=== PATIENT | male | born 1965 | race Caucasian/White ===

== ENCOUNTER 2016-08-17 11:20 | Inpatient (IN) | payer BC, OTHER ==
[~2016-08-17] VITALS: Ht 182.9 cm; Wt 127.6 kg
[2016-08-17] VITALS (11 sets, daily range): BP systolic 130–220; BP diastolic 77–119; PULSE 60–76; RESP 18–22; TEMP 98–98.5; O2SAT 65–99
[~2016-08-17 11:20] MED LIST: AMOX875T20 PO; ASPI325T PO; LISI-363 PO; LORTA5 PO; METF1000 PO; NIAC500 PO; ROSU40 PO; SYNT25TA PO
[2016-08-17] MEDS ORDERED: SODIUM CHLORIDE 0.9% FLUSH 10 ML FLUSH IVF PRN (11:45)
[2016-08-17] MEDS: NITROGLYCERIN 0.4 MG SL 25 TABS/BTL SL SCH ×3 (11:49→12:10)
[2016-08-17] MEDS: METOPROLOL TARTRATE 5 MG/5 ML VIAL IVS SCH ×2 (11:50→11:55)
--- NOTE | 2016-08-17 12:09 | RADRPT ---
EXAM DATE/TIME: 08/17/2016 11:48 [place] COMPARISON: No previous studies available for comparison. INDICATIONS : Chest pain. MEDICAL HISTORY : Diabetes mellitus type II. Hypertension SURGICAL HISTORY : CABG. ENCOUNTER: Initial ACUITY: 1 day PAIN SCORE: 5/10 LOCATION: Bilateral chest FINDINGS: A single view of the chest demonstrates the lungs to be symmetrically aerated without evidence of mas s, infiltrate or effusion. The cardiomediastinal contours are unremarkable. Osseous structures are intact. CONCLUSION: No acute disease. Luis Eduardo Greco MD on August 17, 2016 at 12:07 Board Certified Radiologist. This report was verified electronically.
[2016-08-17 12:15] LABS: AUTOMATED NEUTROPHIL # 9.2 TH/MM3 (1.8-7.7); BASOPHIL % 0.4 % (0.0-2.0); EOSINOPHIL # 0.1 TH/MM3 (0-0.4); EOSINOPHIL % 0.9 % (0.0-4.0); HEMATOCRIT 40.9 % (39.0-51.0); LYMPHOCYTE # 1.9 TH/MM3 (1.0-4.8); MEAN CELL VOLUME 86.4 FL (80.0-100.0); MEAN CORPUSCULAR HEMOGLOBIN 30.2 PG (27.0-34.0); MEAN CORPUSCULAR HGB CONC 34.9 % (32.0-36.0); MONO % 5.2 % (0.0-8.0); NEUT % 77.5 % (16.0-70.0); PLATELET COUNT 243 TH/MM3 (150-450); RED BLOOD COUNT 4.73 MIL/MM3 (4.50-5.90); WHITE BLOOD COUNT 11.8 TH/MM3 (4.0-11.0)
[2016-08-17 12:17] LABS: HEMO FLAGS DIFF FINAL
--- NOTE | 2016-08-17 12:18 | PD ---
HPI Chief Complaint: Chest Pain Time Seen by Provider: 11:42 Travel History International Travel<30 days: No Contact w/Intl Traveler<30days: No Traveled to known affect area: No History of Present Illness HPI This is a 50 year-old gentleman with history of hypertension, hyperlipidemia, diabetes mellitus, who is been off his medications for 3 years, who presents today with complaints of chest pain/pressure. The patient reports she's had it since 9:30 this morning. He reports it coming on and off. He reports that is a 7-9 out of 10 at its worse. He now reports it as a 4-5 out of 10. He reports it substernal with radiation to his right arm and left arm. There is no nausea or diaphoresis. There is no shortness of breath associated with the pain. The patient still uses tobacco products. His states he smokes daily and uses "dip". PFSH Past Medical History Cardiovascular Problems: Yes High Cholesterol: Yes COPD: Yes Coronary Artery Disease: Yes Diabetes: Yes Patient Takes Glucophage: No Hypertension: Yes Respiratory: Yes Myocardial Infarction: Yes Past Surgical History Cardiac Surgery: Yes Coronary Artery Bypass Graft: Yes Social History Alcohol Use: Yes Tobacco Use: Yes Substance Use: No Allergies-Medications (Allergen,Severity, Reaction): Coded Allergies: No Known Allergies (Unverified , 02/06/13) UNOBTAINABLE (Unverified , 02/06/13) Reported Meds & Prescriptions Reported Meds & Active Scripts Active Amoxicillin/Clavulanate P (Amoxicillin/Clavulanate Potassium) 875 Mg Tab 875 Mg PO BID 7 Days Lortab 5/325 Tab (Hydrocodone-Acetaminophen) 1 Tab Tab 1 Tab PO Q6 PRN Reported Aspirin 325 Mg Tab (Aspirin) 325 Mg Tab 325 Mg PO DAILY Niaspan (Niacin) 500 Mg Tab 500 Mg PO HS Synthroid (Levothyroxine Sodium) 25 Mcg Tab 0 PO DAILY Metformin HCl 1,000 Mg Tab 1,000 Mg PO BID Lisinopril 20 Mg Tab 20 Mg PO DAILY Crestor (Rosuvastatin Calcium) 40 Mg Tab 40 Mg PO DAILY Review of Systems Except as stated in HPI: all other systems reviewed are Neg General / Constitutional: No: Fever, Chills HENT: Positive: Other (reports full feeling in his head earlier.), No: Headaches, Lightheadedness Cardiovascular: Positive: Chest Pain or Discomfort (substernal with radiation to his left and right arm.), No: Palpitations, Irregular Rhythm, Diaphoresis Respiratory: Positive: Cough, No: Shortness of Breath Gastrointestinal: No: Nausea, Vomiting, Abdominal Pain Genitourinary: No: Dysuria, Incontinence Musculoskeletal: Positive: Pain (left and right shoulder pain.), No: Weakness Neurologic: No: Weakness, Dizziness, Headache Physical Exam Narrative GENERAL: Well-nourished, well-developed patient. SKIN: Focused skin assessment warm/dry. HEAD: Normocephalic/atraumatic. EYES: No scleral icterus. No injection or drainage. NECK: Supple, trachea midline. No JVD or lymphadenopathy. CARDIOVASCULAR: Regular rate and rhythm without murmurs, gallops, or rubs. RESPIRATORY: Breath sounds equal bilaterally. No accessory muscle use. GASTROINTESTINAL: Abdomen soft, obese, non-tender, nondistended. MUSCULOSKELETAL: No cyanosis, trace pretibial edema bilaterally. NEUROLOGICAL: Awake and alert. Cranial nerves II through XII intact. Motor grossly within normal limits. Five out of 5 muscle strength in all muscle groups. Normal speech. Data Data Last Documented VS Vital Signs Date Time Temp Pulse Resp B/P Pulse Ox O2 Delivery O2 Flow Rate FiO2 08/17/16 12:11 60 20 138/79 98 Nasal Cannula 2 08/17/16 11:32 98.0 Orders Electrocardiogram (08/17/16 11:42) Basic Metabolic Panel (Bmp) (08/17/16 11:42) Ckmb (Isoenzyme) Profile (08/17/16 11:42) Complete Blood Count With Diff (08/17/16 11:42) Magnesium (Mg) (08/17/16 11:42) Prothrombin Time / Inr (Pt) (08/17/16 11:42) Act Partial Throm Time (Ptt) (08/17/16 11:42) Troponin I (08/17/16 11:42) Chest, Single Ap (08/17/16 11:42) Ecg Monitoring (08/17/16 11:42) Bilateral Bp Monitoring (08/17/16 11:42) Iv Access Insert/Monitor (08/17/16 11:42) Oximetry (08/17/16 11:42) Oxygen Administration (08/17/16 11:42) Sodium Chloride 0.9% Flush (Ns Flush) (08/17/16 11:45) Nitroglycerin Sl (Nitrostat Sl) (08/17/16 11:45) Metoprolol Tartrate Inj (Lopressor Inj) (08/17/16 11:45) Morphine Inj (Morphine Inj) (08/17/16 12:30) Ondansetron Inj (Zofran Inj) (08/17/16 12:30) CKMB (08/17/16 12:00) CKMB% (08/17/16 12:00) Labs Laboratory Tests Test 08/17/16 12:00 White Blood Count 11.8 TH/MM3 Red Blood Count 4.73 MIL/MM3 Hemoglobin 14.3 GM/DL Hematocrit 40.9 % Mean Corpuscular Volume 86.4 FL Mean Corpuscular Hemoglobin 30.2 PG Mean Corpuscular Hemoglobin 34.9 % Concent Red Cell Distribution Width 14.0 % Platelet Count 243 TH/MM3 Mean Platelet Volume 8.8 FL Neutrophils (%) (Auto) 77.5 % Lymphocytes (%) (Auto) 16.0 % Monocytes (%) (Auto) 5.2 % Eosinophils (%) (Auto) 0.9 % Basophils (%) (Auto) 0.4 % Neutrophils # (Auto) 9.2 TH/MM3 Lymphocytes # (Auto) 1.9 TH/MM3 Monocytes # (Auto) 0.6 TH/MM3 Eosinophils # (Auto) 0.1 TH/MM3 Basophils # (Auto) 0.0 TH/MM3 CBC Comment DIFF FINAL Differential Comment Prothrombin Time 10.9 SEC Prothromb Time International 1.0 RATIO Ratio Activated Partial 26.3 SEC Thromboplast Time Sodium Level 136 MEQ/L Potassium Level 3.6 MEQ/L Chloride Level 100 MEQ/L Carbon Dioxide Level 27.4 MEQ/L Anion Gap 9 MEQ/L Blood Urea Nitrogen 9 MG/DL Creatinine 0.96 MG/DL Estimat Glomerular Filtration 84 ML/MIN Rate Random Glucose 173 MG/DL Calcium Level 9.1 MG/DL Magnesium Level 2.2 MG/DL Total Creatine Kinase 494 U/L Creatine Kinase MB 5.2 NG/ML Creatine Kinase MB % 1.1 % Troponin I LESS THAN 0.02 NG/ML MDM Medical Decision Making Medical Screen Exam Complete: Yes Emergency Medical Condition: Yes Differential Diagnosis ACS versus musculoskeletal pain versus GERD versus medication noncompliance versus Narrative Course This is a 50-year-old gentleman is history of hypertension, diabetes medicine, hyperlipidemia, previous CABG, presents today with complaints of chest pain since 9:30 this morning patient reports substernal with radiation to his bilateral arms. He's been off his medications for 3 years. The patient's cardiac enzymes are within normal limits he did have an elevated CK however is MB percent was normal and his troponin was normal. EKG showed what looks like ST depression in the lateral leads. There is no ST elevation noted. The patient be placed in the chest pain center for rule out protocol. Diagnosis Primary Impression: Chest pain Additional Impressions: Coronary artery disease Hypertension Diabetes mellitus Hyperlipidemia Noncompliance with medication regimen Trace Hammond MD Aug 17, 2016 12:18
[2016-08-17 12:25] LABS: APTT (PATIENT) 26.3 SEC (24.3-30.1); PROTHROMBIN TIME - PATIENT 10.9 SEC (9.8-11.6)
[2016-08-17] MEDS ORDERED: MORPHINE SULFATE 4 MG/ML INJ IV ONE (12:30)
[2016-08-17] MEDS ORDERED: ONDANSETRON HCL 4 MG/2 ML VIAL IVP ONE (12:30)
[2016-08-17 12:36] LABS: ANION GAP 9 MEQ/L (5-15); BICARBONATE 27.4 MEQ/L (21.0-32.0); BLOOD UREA NITROGEN 9 MG/DL (7-18); CHLORIDE 100 MEQ/L (98-107); GLOMERULAR FILTRATION RATE 84 ML/MIN (>89); MAGNESIUM 2.2 MG/DL (1.5-2.5); POTASSIUM 3.6 MEQ/L (3.5-5.1); SODIUM (NA) 136 MEQ/L (136-145)
[2016-08-17 12:41] LABS: CREATINE KINASE 494 U/L (39-308)
[2016-08-17 12:54] LABS: CKMB 5.2 NG/ML (0.5-3.6)
[2016-08-17] MEDS ORDERED: ONDANSETRON HCL 4 MG/2 ML VIAL IV PRN (14:15)
[2016-08-17] MEDS ORDERED: NITROGLYCERIN 0.4 MG SL 25 TABS/BTL SL PRN (14:15)
[2016-08-17] MEDS ORDERED: ALUMINUM/MAGNESIUM/SIMETH 30 ML CUP PO ONE (15:00)
[2016-08-17] MEDS ORDERED: GLUCAGON 1 MG/ML VIAL OTHER PRN (15:00)
[2016-08-17] MEDS ORDERED: LIDOCAINE VISCOUS 2% SOLN 15 ML UDC SWISH-SWAL ONE (15:00)
[2016-08-17] MEDS ORDERED: DEXTROSE 50% IN WATER 50 ML VIAL(D50) IV PUSH PRN (15:00)
[2016-08-17] MEDS ORDERED: ALUMINUM/MAGNESIUM/SIMETH 30 ML CUP PO PRN (15:15)
--- NOTE | 2016-08-17 15:21 | HHI.HP ---
HPI Primary Care Physician No Primary Care Physician Chief Complaint Chest pain History of Present Illness 50-year-old male with known coronary artery disease including triple bypass at age 35, diabetes, hypertension, hyperlipidemia, and current smoker presents to the emergency room for further evaluation of chest discomfort. Patient has not been taking any of his prescription medications for at least 3 years due to lack of insurance. He works hourly shift manager. This morning, after work, approximately 8 AM he felt as though he could not get comfortable and felt a slight weight with a dull pressure substernally. Endorses intermittent intense "spasms of increased pain." Radiation bilateral arms left greater than right, made worse during "spasms of pain." Pain radiating to arms described as aching. Spasms of pain described as a gradual worsening pressure lasting 5 minutes, gradually goes away. Associated symptoms included nausea, diaphoresis , and states "it was harder to breathe." No weakness, dizziness, or lightheadedness. Onset nonexertional, he was watching TV. No known precipitating factors. Was provided in ED 3 nitroglycerin tablets without relief. 1 dose of morphine improved chest discomfort "slightly." Continues to have chest discomfort although states is tolerable. Endorses over the past month he has felt fatigued and "didn't feel well." No recent illness, fevers, or chills. Review of Systems General: Increasing fatigue over the past month. No weakness, fever, chills, or recent illness. HEENT: No DYKES, no vision changes, no nasal congestion or drainage, no dysphasia CV: As stated above. No palpitations or dizziness RESP: No SOB, cough, wheeze, or recent URI GI: As stated above. Complaints of indigestion made worse after receiving morphine. Endorses GERD does not take medicine on a regular basis only "a lot of Tums." States "I've tried all the acid reflux medication and it does not work for me. " No vomiting, bowel changes, diarrhea, constipation, pain, distention, melena, blood in the stool. History of diverticulosis. No change in appetite, no unintentional weight gain or weight loss : No dysuria, urgency, frequency EXT: No lower leg edema, no paraesthesias MS: Chronic back pain due to lumbar disc L2-L4 herniated disc. No change in ROM NEURO: No change in memory, dizziness, difficulty with balance, LOC, motor/ sensory deficits PSYCH: No anxiety or depression SKIN: No rashes, no concerning lesions Past Family Social History Allergies: Coded Allergies: No Known Allergies (Unverified , 02/06/13) UNOBTAINABLE (Unverified , 02/06/13) Past Medical History Diabetes, hypertension, hyperlipidemia, diverticulosis, GERD, coronary artery disease Past Surgical History CABG [id number], cholecystectomy, left knee a CDL, x2 foot surgery Reported Medications Currently not taking any prescription medications. Last use greater than 3 years ago. Active Ordered Medications Current Medications Medications (Trade) Dose Ordered Sig/Justine Route Start Time Stop Time Status Last Admin (Tylenol) 500 mg Q4H PRN PO 08/17/16 14:15 (Zofran Inj) 4 mg Q6H PRN IV 08/17/16 14:15 (Nitrostat Sl) 0.4 mg Q5M PRN SL 08/17/16 14:15 (Aspirin) 325 mg DAILY PO 08/18/16 09:00 (Nitroglycerin 2% Oint) 1 inch Q6HR TOPICAL 08/17/16 17:00 (Lopressor) 25 mg DAILY PO 08/17/16 16:00 (Prinivil) 10 mg DAILY PO 08/17/16 16:00 (D50w (Vial) Inj) 25 ml UNSCH PRN IV PUSH 08/17/16 15:00 (Glucagon Inj) 1 mg UNSCH PRN OTHER 08/17/16 15:00 (Mag-Al Plus Susp Liq) 30 ml Q6H PRN PO 08/17/16 15:15 (Catapres) 0.2 mg Q6H PRN PO 08/17/16 15:15 (Protonix) 40 mg DAILY PO 08/17/16 15:15 Family History Positive family history of early onset cardiovascular disease on paternal side including hypertension and diabetes. Mother CVA and CAD. Social History , works retail evening hours. Continues to smoke half a pack cigarettes daily at age 15. Also uses chewing tobacco. Rare alcohol. Denies any illegal drug use. Known diabetes, hypertension, and hyperlipidemia. Moved to [place] 3 years ago has not seen a physician sets. Recently received insurance 1 month ago and is actively looking for a PCP. Past cardiac testing No recent cardiac testing or cardiac catheterizations. Has not seen a taxonomy teacher in over 3 years. CABG x 3 vessels-2001. Was told he had two other diseased arteries but too small to repair. Physical Exam Vital Signs Vital Signs Date Time Temp Pulse Resp B/P Pulse Ox O2 Delivery O2 Flow Rate FiO2 08/17/16 13:58 63 20 144/85 97 Nasal Cannula 2 08/17/16 12:11 60 20 138/79 98 Nasal Cannula 2 08/17/16 11:59 60 20 170/100 Nasal Cannula 2 08/17/16 11:46 70 220/119 201/115 08/17/16 11:38 99 Nasal Cannula 2 08/17/16 11:34 66 22 99 Nasal Cannula 2 08/17/16 11:32 98.0 66 22 198/115 99 Physical Exam GENERAL: Alert WN, WD, NAD, pleasant, obese, male who appears older than his stated age. HEAD: NC, AT EYES: Sclera clear, conjunctiva without injection, pupils equal and round ENT: Mucous membranes pink and moist NECK: Supple, no masses, trachea midline CV: RRR, without murmur, rub, gallop, no JVD, S1-S2 no S3-S4. No carotid or femoral bruits. RESP: Clear lungs throughout bilateral, no crackles, wheeze, rhonchi, symmetrical chest rise, nonlabored, able to speak in full sentences ABD: Soft, slightly tender upon palpation in epigastric area, ND, obese, no masses, positive bowel tones EXT: Pulses +24, no dependent edema MS: Normal tone 4 extremities, nontender, no obvious deformities, full range of motion NEURO: CN II through CN XII grossly intact, motor strength 5/5, gait WNL PSYCH: A+O 3, pleasant affect, appropriate speech, appropriate mood and affect , insight and judgment SKIN: Normal turgor, normal texture, no lesions, no rashes, brisk cap refill, even hair distribution Laboratory Laboratory Tests Test 08/17/16 12:00 White Blood Count 11.8 Red Blood Count 4.73 Hemoglobin 14.3 Hematocrit 40.9 Mean Corpuscular Volume 86.4 Mean Corpuscular Hemoglobin 30.2 Mean Corpuscular Hemoglobin 34.9 Concent Red Cell Distribution Width 14.0 Platelet Count 243 Mean Platelet Volume 8.8 Neutrophils (%) (Auto) 77.5 Lymphocytes (%) (Auto) 16.0 Monocytes (%) (Auto) 5.2 Eosinophils (%) (Auto) 0.9 Basophils (%) (Auto) 0.4 Neutrophils # (Auto) 9.2 Lymphocytes # (Auto) 1.9 Monocytes # (Auto) 0.6 Eosinophils # (Auto) 0.1 Basophils # (Auto) 0.0 CBC Comment DIFF FINAL Differential Comment Prothrombin Time 10.9 Prothromb Time International 1.0 Ratio Activated Partial 26.3 Thromboplast Time Sodium Level 136 Potassium Level 3.6 Chloride Level 100 Carbon Dioxide Level 27.4 Anion Gap 9 Blood Urea Nitrogen 9 Creatinine 0.96 Estimat Glomerular Filtration 84 Rate Random Glucose 173 Calcium Level 9.1 Magnesium Level 2.2 Total Creatine Kinase 494 Creatine Kinase MB 5.2 Creatine Kinase MB % 1.1 Troponin I LESS THAN 0.02 Result Diagram: 08/17/16 1200 08/17/16 1200 Imaging Last Impressions Chest X-Ray 08/17/16 1142 Signed Impressions: Service Date/Time: Wednesday, August 17, 2016 11:48 - CONCLUSION: No acute disease. Luis Eduardo Greco MD Course EKGs First and second EKGs show normal sinus rhythm with nonspecific T-wave changes in leads 1 and aVL, vertical axis. Assessment and Plan Assessment and Plan #1 Chest painadmitted to chest pain center. Will complete 3 sets of EKGs and cardiac enzymes. Seen and evaluated by Dr. Kishan Griffin. If patient is ruled out will complete Daysi scan in a.m. Dr. Griffin discussed in length with patient and patient's plan of care and concern his discomfort is cardiac related. Nitroglycerin paste 1 inch every 6 hours and Lopressor 25 mg by mouth daily. #2 GERDGI cocktail 1 dose, Maalox every 6 when necessary, Protonix 40 mg daily #3 Hypertensionlisinopril 10 mg daily, clonidine 0.2 mg every 6 hours PRN for systolic greater than 180 and or diastolic greater than 100 #4 Diabeteslow-dose sliding scale insulin coverage, hemoglobin A1c #5 Tobacco use-discussed and counseled patient on importance of tobacco cessation and risk associated with tobacco use. Encourage patient to quit smoking and using oral tobacco. Encouraged patient to establish with a PCP for all chronic conditions and importance of medication compliance. Lynnette Sandra Aug 17, 2016 15:21
[2016-08-17] MEDS: LISINOPRIL 10 MG TAB PO SCH (15:54)
[2016-08-17] MEDS: METOPROLOL TARTRATE 25 MG TAB PO SCH (15:54)
[2016-08-17] MEDS: PANTOPRAZOLE SOD 40 MG DELAYED RELEASE TAB PO SCH (15:58)
[2016-08-17] MEDS ORDERED: PANTOPRAZOLE SOD 40 MG DELAYED RELEASE TAB PO SCH (16:00)
[2016-08-17] MEDS: NITROGLYCERIN 2% OINT 1 GM PACKET TOPICAL SCH ×2 (16:20→23:59)
[2016-08-17] MEDS: INSULIN ASPART SUPPLEMENTAL SCALE SQ SCH ×2 (16:20→21:39)
[2016-08-17 16:51] LABS: HEMOGLOBIN A1b 2.3 %; HEMOGLOBIN Ao 81.4 %; HEMOGLOBIN LA1C 2.5 %
[2016-08-17 17:28] LABS: CKMB 6.5 NG/ML (0.5-3.6)
[2016-08-17] MEDS: cloNIDine HCL 0.2 MG TAB PO PRN (17:29)
[2016-08-17 20:02] LABS: CKMB 16.6 NG/ML (0.5-3.6)
[2016-08-17] MEDS: SODIUM CHLORIDE 0.9% FLUSH 10 ML FLUSH IV FLUSH SCH (21:00)
[2016-08-18] VITALS (21 sets, daily range): BP systolic 147–185; BP diastolic 79–117; PULSE 60–89; RESP 18; TEMP 98–99.5; O2SAT 89–94
[2016-08-18] MEDS: NITROGLYCERIN 2% OINT 1 GM PACKET TOPICAL SCH ×3 (06:00→18:00)
[2016-08-18] MEDS: INSULIN ASPART SUPPLEMENTAL SCALE SQ SCH ×4 (06:48→21:00)
[2016-08-18] MEDS: ASPIRIN 325 MG TAB PO SCH (09:00)
[2016-08-18] MEDS: PANTOPRAZOLE SOD 40 MG DELAYED RELEASE TAB PO SCH (10:23)
[2016-08-18] MEDS: METOPROLOL TARTRATE 25 MG TAB PO SCH (10:23)
[2016-08-18] MEDS: LISINOPRIL 10 MG TAB PO SCH (10:24)
[2016-08-18] MEDS: SODIUM CHLORIDE 0.9% FLUSH 10 ML FLUSH IV FLUSH SCH ×2 (10:24→21:00)
[2016-08-18] MEDS: ACETAMINOPHEN 500 MG CPLT PO PRN (10:25)
--- NOTE | 2016-08-18 12:22 | EC ---
Study Study Date:08/18/2016 STUDY CONCLUSIONS SUMMARY - Left ventricle: The cavity size was normal. Wall thickness was normal. Systolic function was normal. The estimated ejection fraction was in the range of 50% to 55%. Wall motion was normal; there were no regional wall motion abnormalities. - Aortic valve: Valve area: 2.86cm^2 (Vmax). - Left atrium: The atrium was mildly dilated. If LV function is below 40, please consider prescribing an ACEI or ARB or document rationale for non-use. PROCEDURE DATA STUDY STATUS: Elective. Procedure: Transthoracic echocardiography. Image quality was good. Scanning was performed from the parasternal, apical, and subcostal acoustic windows. Study completion: The patient tolerated the procedure well. Transthoracic echocardiography. M-mode, complete 2D, complete spectral Doppler, and color Doppler. Height: Height: 72in. Weight: Weight: 285.4lb. Body mass index: BMI: 38.8kg/m^2. Body surface area: BSA: 2.48m^2. Patient status: Inpatient. CARDIAC ANATOMY LEFT VENTRICLE: The cavity size was normal. Wall thickness was normal. Systolic function was normal. The estimated ejection fraction was in the range of 50% to 55%. Wall motion was normal; there were no regional wall motion abnormalities. AORTIC VALVE: Trileaflet; normal thickness leaflets. Doppler: Transvalvular velocity was within the normal range. There was no stenosis. No regurgitation. Valve area: 2.86cm^2 (Vmax). Indexed valve area: 1.15cm^2/m^2 (Vmax). AORTA: Aortic root: The aortic root was normal in size. MITRAL VALVE: Structurally normal valve. Doppler: Transvalvular velocity was within the normal range. There was no evidence for stenosis. No regurgitation. Peak gradient: 3mm Hg (D). LEFT ATRIUM: The atrium was mildly dilated. RIGHT VENTRICLE: The cavity size was normal. Wall thickness was normal. PULMONIC VALVE: Doppler: Transvalvular velocity was within the normal range. There was no evidence for stenosis. No regurgitation. TRICUSPID VALVE: Structurally normal valve. Doppler: Transvalvular velocity was within the normal range. No regurgitation. PULMONARY ARTERY: The main pulmonary artery was normal-sized. Systolic pressure was within the normal range. RIGHT ATRIUM: The atrium was normal in size. PERICARDIUM: There was no pericardial effusion. SYSTEMIC VEINS: Inferior vena cava: The vessel was normal in size. Patient weight: 285.4lb _Ejection fraction:_ 65-75% _Fractional shortening:_ 32% up to 5Kg 5-11.5Kg 11.6-22.9Kg 23-45Kg 45-57Kg Aortic Root 7-13 <17 13-22 17-27 17-27 LA diam 6-13 <23 24-38 33-47 37-40 RVID 10-17 7-15 7-15 7-18 8-17 LVIDd 12-22 <32 24-38 33-47 37-40 LVPW 2-4 3-6 5-7 6-8 7-8 IVS 2-4 3-6 5-7 6-8 7-8 BASIC MEASUREMENTS ADULT NORMAL Left ventricle LV internal dimension, ED, chordal 46.1 mm 43-52 level, PLAX LV internal dimension, ES, chordal 35.9 mm 23-38 level, PLAX Fractional shortening, chordal level, *22 % >29 PLAX LV posterior wall thickness, ED 13.1 mm IVS/LVPW ratio, ED 0.99 <1.3 Ventricular septum Septal thickness, ED 13 mm Aortic valve Leaflet separation 26 mm 15-26 BASIC MEASUREMENTS ADULT NORMAL Aortic valve Leaflet separation 26 mm 15-26 Aorta Root diameter, ED *41 mm 20-37 Left atrium Anterior-posterior dimension, ES *43 mm 19-40 Anterior-posterior dimension index, ES 1.73 cm/m^2 <2.2 LA/aortic root ratio 1.05 DOPPLER MEASUREMENTS ADULT NORMAL Aortic valve Peak velocity, S 124 cm/s Valve area, Vmax 2.86 cm^2 Valve area index, Vmax 1.15 cm^2/m^2 Mitral valve Peak E-wave velocity 81.9 cm/s Peak A-wave velocity 66.1 cm/s Deceleration time 208 ms 150-230 Peak gradient, D 3 mm Hg Peak E/A ratio 1.2 Maximal regurgitant velocity 277 cm/s Pulmonic valve Peak velocity, S 132 cm/s LEGEND: Mean values are shown as u=mean value. Asterisk (*) cruz values outside specified normal range. Prepared and signed by Joel Perez [id number]
--- NOTE | 2016-08-18 13:31 | PD.CONS ---
[facility] By Dr. Griffin Reason for Consult Medical management Primary Care Physician No Primary Care Physician Diagnoses: History of Present Illness 50-year-old male with a medical history significant for coronary artery disease status post triple bypass at age 35, hypertension, diabetes, hyperlipidemia and lifelong smoker presented to the emergency room with complaint of chest tightness. The patient is noncompliant and has not been taking any medications for the past 3 years. Initially he attributed that to lack of insurance but says now he has insurance but did not seek to follow-up. He was initially admitted to the chest pain center but his second set of troponin came back elevated. Cardiology was consulted from the chest pain center. The patient is now seen on the cardiac floor. He is upset because he has been NPO. Per discussion with the RN, he threatened to leave AMA. After my discussion with him, he appeared to be more willing to stay for treatment but still makes statements such as "I'm not going to stay here all day". Currently the patient still endorsed having intermittent chest pain but reports it is less intense. Pain radiated to the left arm. Currently denies shortness of breath. He is feeling better compared to when he presented to the emergency room. Review of Systems Constitutional: DENIES: Fever, Chills Endocrine: DENIES: Polyuria, Polyphagia Eyes: DENIES: Diplopia Ears, nose, mouth, throat: DENIES: Vertigo, Oral lesions Respiratory: DENIES: Cough Cardiovascular: COMPLAINS OF: Chest pain Except as stated in HPI: all other systems reviewed are Neg Past Family Social History Allergies: Coded Allergies: No Known Allergies (Unverified , 02/06/13) UNOBTAINABLE (Unverified , 02/06/13) Past Medical History Coronary artery disease status post triple bypass at age 35, hypertension, diabetes, hyperlipidemia and lifelong smoker Past Surgical History Triple coronary artery bypass graft in 2002 Cholecystectomy Left knee surgery Reported Medications Reported Meds & Active Scripts Active Family History Father with history of hypertension, heart disease, and diabetes Mother with history of heart disease and strokes. Social History The patient has been smoking half a pack of cigarettes per day since he was 15 years old. Admits to occasional alcohol. Denies illicit drug use. Physical Exam Vital Signs Vital Signs Date Time Temp Pulse Resp B/P Pulse Ox O2 Delivery O2 Flow Rate FiO2 08/18/16 06:07 67 08/18/16 05:00 68 08/18/16 04:00 68 08/18/16 04:00 98.0 71 18 151/91 92 08/18/16 03:00 68 08/18/16 02:50 62 08/18/16 02:00 62 08/18/16 01:00 67 08/18/16 00:04 98.0 62 18 147/87 94 08/18/16 00:00 60 08/17/16 23:09 74 08/17/16 22:00 98.0 66 18 130/78 93 08/17/16 22:00 65 08/17/16 20:00 92 08/17/16 19:40 98.4 61 19 133/77 94 08/17/16 16:46 76 08/17/16 16:00 98.5 63 20 196/109 95 08/17/16 13:58 63 20 144/85 97 Nasal Cannula 2 Physical Exam CONSTITUTIONAL/GENERAL: Obese male in no apparent distress. Vital signs reviewed SKIN: No jaundice, rashes, or concerning lesions. Not diaphoretic. HEAD: Atraumatic. Normocephalic. EYES: Pupils equal and round and reactive. Extra ocular motions are intact. No scleral icterus. No injection or drainage. ENT: Hearing grossly normal. Nose without drainage. Throat without visible erythema, exudates, masses, or lesions. NECK: Trachea midline. Neck is supple, non-tender. No palpable thyroid enlargement or nodularity. CARDIOVASCULAR: Normal rate and regular rhythm without murmurs, gallops, or rubs. No JVD. Peripheral pulses 2+ and symmetric. RESPIRATORY/CHEST: Symmetric, unlabored respirations. Breath sounds equal and clear to auscultation bilaterally. No wheezes, crackles, rales, or rhonchi. GASTROINTESTINAL: Abdomen soft, non-tender, non-distended. No hepato- splenomegaly, or palpable masses. No guarding. Bowel sounds present. MUSCULOSKELETAL: Extremities without clubbing, cyanosis, or edema. No joint tenderness or effusion noted. No calf tenderness. No mottling or clubbing. NEUROLOGICAL: Awake and alert. Motor and sensory grossly within normal limits. Follows commands. Move all extremities spontaneously. No focal deficits. PSYCHIATRIC: No obvious mood problems. No apparent hallucinations or other psychotic thought process. Laboratory Laboratory Tests Test 408/17/16 08/18/16 08/18/16 15:15 18:35 00:16 11:41 Total Creatine Kinase 407 432 Creatine Kinase MB 6.5 16.6 Creatine Kinase MB % 1.6 3.8 Troponin I 0.20 1.03 2.77 9.25 Result Diagram: 08/17/16 1200 08/17/16 1200 Imaging Last Impressions Chest X-Ray 08/17/16 1142 Signed Impressions: Service Date/Time: Wednesday, August 17, 2016 11:48 - CONCLUSION: No acute disease. Luis Eduardo Greco MD Assessment and Plan Problem List: (1) NSTEMI (non-ST elevated myocardial infarction) ICD Code: I21.4 Status: Acute (2) Hypertension ICD Code: I10 Status: Acute (3) Diabetes mellitus ICD Code: E11.9 Status: Acute (4) Noncompliance with medication regimen ICD Code: Z91.14 Status: Acute (5) Tobacco abuse ICD Code: Z72.0 Status: Acute (6) CAD (coronary artery disease) ICD Code: I25.10 Status: Acute Assessment and Plan 50-year-old male with known history of coronary artery disease status post triple-vessel CABG in 2001. Patient has not been on any medications for the past 3 years. He presented with chest pain. His cardiac enzymes trending upward. NSTEMI: Cardiology aware. H/O CABG. No meds for the past three years - On Morphine, supplemental oxygen, nitroglycerin, aspirin, metoprolol. - Further plans per Dr. Mccollum - Patient is noncompliant which may complicate his course of treatment. I do not know if he will stay or leave AMA. He was counseled on potential adverse outcome, including if he does not comply to recommended treatments. HTN: Uncontrolled. No medications for the past three years - Patient started on metoprolol and lisinopril. Clonidine as needed. Continue to monitor. Diabetes: Untreated and Uncontrolled. Hemoglobin A1c of 8.3 - Low-dose sliding scale insulin with Accu-Cheks. - We'll consider metformin on discharge. He will need outpatient follow-up. Tobacco abuse: Patient counseled on the detrimental effects of smoking on his health and the need to quit. GI prophylaxis: PPI. Stool softener PRN constipation. DVT PPx: Heparin Admit to inpatient due to NSTEMI and comorbidities. Rimpel,Ricardy MD Aug 18, 2016 13:31
[2016-08-18] MEDS ORDERED: IOHEXOL 350 MG/ML 50 ML BTL (for Cath Lab) OTHER ONE (14:25)
[2016-08-18] MEDS ORDERED: IOHEXOL 350 MG/ML 100 ML BTL (for Cath Lab) OTHER ONE (14:25)
[2016-08-18] MEDS ORDERED: HEPARIN-NS/PF INJ 500 ML ONE (14:30)
[2016-08-18] MEDS ORDERED: MIDAZOLAM HCL 2 MG/2 ML VIAL ONE ×3 (14:30→17:14)
--- NOTE | 2016-08-18 14:31 | PD.CONS ---
HPI Service Cardiology Consult Requested By Hosp Reason for Consult NSTEMI Primary Care Physician No Primary Care Physician History of Present Illness 50 y/o M with pmhx of coronary artery disease s/p CABG, diabetes, hypertension, hyperlipidemia, smoker and noncompliance with medications that presents to the ER with chest discomfort. He describes the chest discomfort as a dull pressure substernally with radiation bilateral arms. Associated symptoms included nausea and diaphoresis. Nitroglycerin given in the ED relieve the pain. No recent illness, fevers, or chills. Review of Systems Consitutional: DENIES: Fatigue, Fever, Chills, Weight gain, Weight loss Eyes: DENIES: Amaurosis Fugax, Change in vision HEENT: DENIES: Lightheadedness, Change in hearing Respiratory: DENIES: See HPI, Cough, Snoring, Shortness of breath, Wheezing, Sputum production Cardiovascular: DENIES: See HPI, Chest pain, Palpitations, Syncope, Tachycardia Gastrointestinal: DENIES: Nausea, Vomiting, Change in bowel habits, Reflux, Bloody stools, Melena Genitourinary: DENIES: Urinary incontinence, Difficulty voiding Integumentary: DENIES: Rash Neurologic: DENIES: Tingling or numbness, Memory problems, Poor Balance, Stroke symptoms Musculoskeletal: DENIES: Joint pain, Muscle pain, Limited range of motion, Back pain Psychiatric: DENIES: Anxiety, Depression, Sleep disturbances Hematologic: DENIES: Bruising tendencies, Bleeding tendencies Endocrine: DENIES: Weight gain, Weight loss, Thyroid disease Past Family Social History Allergies: Coded Allergies: No Known Allergies (Unverified , 02/06/13) UNOBTAINABLE (Unverified , 02/06/13) Past Medical History CAD s/p CABG x3 hypertension, diabetes, hyperlipidemia smoker Past Surgical History CABG x3 Reported Medications Reported Meds & Active Scripts Active Active Ordered Medications Current Medications Medications (Trade) Dose Ordered Sig/Justine Route Start Time Stop Time Status Last Admin (NS Flush) 2 ml UNSCH PRN IVF 08/17/16 11:45 (NS Flush) 2 ml BID IV FLUSH 08/17/16 21:00 08/18/16 10:24 (Tylenol) 500 mg Q4H PRN PO 08/17/16 14:15 08/18/16 10:25 (Zofran Inj) 4 mg Q6H PRN IV 08/17/16 14:15 (Nitrostat Sl) 0.4 mg Q5M PRN SL 08/17/16 14:15 (Aspirin) 325 mg DAILY PO 08/18/16 09:00 (Nitroglycerin 2% Oint) 1 inch Q6HR TOPICAL 08/17/16 17:00 08/18/16 11:28 (Lopressor) 25 mg DAILY PO 08/17/16 16:00 08/18/16 10:23 (Prinivil) 10 mg DAILY PO 08/17/16 16:00 08/18/16 10:24 (D50w (Vial) Inj) 25 ml UNSCH PRN IV PUSH 08/17/16 15:00 (Glucagon Inj) 1 mg UNSCH PRN OTHER 08/17/16 15:00 (Mag-Al Plus Susp Liq) 30 ml Q6H PRN PO 08/17/16 15:15 (Catapres) 0.2 mg Q6H PRN PO 08/17/16 15:15 08/17/16 17:29 (Protonix) 40 mg DAILY PO 08/17/16 15:15 08/18/16 10:23 (Heparin Inj) 5,000 units Q8H SQ 08/18/16 16:00 Social History Smoker Physical Exam Vital Signs Vital Signs Date Time Temp Pulse Resp B/P Pulse Ox O2 Delivery O2 Flow Rate FiO2 08/18/16 13:42 18 08/18/16 12:00 99.3 80 18 152/82 91 08/18/16 08:00 99.5 71 18 157/97 93 08/18/16 06:07 67 08/18/16 05:00 68 08/18/16 04:00 68 08/18/16 04:00 98.0 71 18 151/91 92 08/18/16 03:00 68 08/18/16 02:50 62 08/18/16 02:00 62 08/18/16 01:00 67 08/18/16 00:04 98.0 62 18 147/87 94 08/18/16 00:00 60 08/17/16 23:09 74 08/17/16 22:00 98.0 66 18 130/78 93 08/17/16 22:00 65 08/17/16 20:00 92 08/17/16 19:40 98.4 61 19 133/77 94 4/7/17 16:46 76 08/17/16 16:00 98.5 63 20 196/109 95 Physical Exam GENERAL: Well-nourished, well-developed patient. SKIN: Warm and dry. HEAD: Normocephalic. EYES: No scleral icterus. No injection or drainage. NECK: Supple, trachea midline. No JVD or lymphadenopathy. CARDIOVASCULAR: Regular rate and rhythm without murmurs, gallops, or rubs. RESPIRATORY: Breath sounds equal bilaterally. No accessory muscle use. GASTROINTESTINAL: Abdomen soft, non-tender, nondistended. EXTREMITIES: No cyanosis, or edema. NEUROLOGICAL: Awake, alert, and oriented x 3. Non-focal. Laboratory Laboratory Tests Test 08/17/16 08/17/16 08/18/16 08/18/16 15:15 18:35 00:16 11:41 Total Creatine Kinase 407 432 Creatine Kinase MB 6.5 16.6 Creatine Kinase MB % 1.6 3.8 Troponin I 0.20 1.03 2.77 9.25 Result Diagram: 08/17/16 1200 08/17/16 1200 Imaging Last Impressions Chest X-Ray 08/17/16 1142 Signed Impressions: Service Date/Time: Wednesday, August 17, 2016 11:48 - CONCLUSION: No acute disease. Luis Eduardo Greco MD Assessment and Plan Problem List: (1) NSTEMI (non-ST elevated myocardial infarction) Assessment and Plan: 50 y/o M with known CAD presenting with a NSTEMI. Currently hemodynamically stable with some chest discomfort. Given presentation and hx I think it would be reasonable to take him to the cardiac cath lab technologist for early PCI. Risk benefits of LHC/ PCI including but not limited to bleeding , GARRISON, neurovascular trauma, VT, emergent CABG and explained to patient. Patient understand risk and is willing to proceed. Recommendations: 1. Keep NPO 2. LHC +/- PCI today 3. Aggressive medical management for CAD Further therapy to be determined (2) Coronary artery disease (3) Hyperlipidemia (4) Chest pain (5) Diabetes mellitus (6) Tobacco abuse (7) Hypertension (8) Noncompliance with medication regimen (9) CAD (coronary artery disease) Paulie Penn MD Aug 18, 2016 14:31
[2016-08-18] MEDS ORDERED: HEPARIN SODIUM - IV 10,000 UNITS/10 ML VIAL ONE ×2 (15:31→16:14)
[2016-08-18] MEDS: HEPARIN SODIUM - SQ 10,000 UNITS/ML VIAL SQ SCH (16:00)
[2016-08-18] MEDS ORDERED: SODIUM NITROPRUSSIDE 50 MG/2 ML VIAL ONE (16:11)
[2016-08-18] MEDS ORDERED: CLOPIDOGREL 300 MG TAB ONE (17:16)
[2016-08-18] MEDS ORDERED: CLOPIDOGREL 300 MG TAB PO ONE (17:30)
[2016-08-18] MEDS ORDERED: MISC INFORMATION XX ONE (17:30)
[2016-08-18] MEDS: cloNIDine HCL 0.2 MG TAB PO PRN (18:16)
[2016-08-18] MEDS ORDERED: LABETALOL HCL 100 MG/20 ML VIAL ONE (18:46)
--- NOTE | 2016-08-18 22:23 | MA ---
cc: GIANNAPAULIE Aguirre DATE 08/18/16 DATE OF 1965 PROCEDURE PERFORMED 1. Left heart catheterization. 2. Selective graft angiography. 3. Left ventriculogram. 4. Right common femoral artery angiography. 5. Successful PCI/bare metal stent to SVG to diagonal. 6. Successful PCI/bare metal stent to OM. 7. Successful PCI/BES to left circumflex artery. INDICATION [id number] TX. DESCRIPTION OF PROCEDURE Consent signed. The patient was brought into the cardiac computer lab para professional in fasting state. The right groin was prepped and draped in sterile fashion using 1% lidocaine for local anesthesia and a micropuncture kit, a long 6-Amharic sheath was inserted into the right common femoral artery. Selective right common femoral artery angiography was done to confirm position of the sheath. Then selective right and left coronary angiography was performed with a JR-4 and a JL -4 diagnostic catheters. This was followed by angiography to the grafts and internal mammary artery. Angiography was taken in multiple views. The JR diagnostic guide was introduced into the ventricle over a wire. This was followed by pressure recordings, left ventriculogram and pullback. We identified the patient had severe [place] CAD with 2/3 grafts patent. The graft going to the diagonal had a significant lesion proximally and the [place] left circumflex artery/OM2 also high-risk bifurcating lesion Buchanan 1,1,1 classification. We proceeded to fix. IV heparin was given for anticoagulation. The SVG graft was engaged with a JR-4 guide. There was an attempt to deploy the distal protection device. However, we were unable due to distal tortuosity on the graft though the vessel, thus the vessel was wired with an Runthrough wire. Intracoronary Nipride was given for chemical distal protection, this was followed by predilation with a 3x15mm balloon followed by insertion and deployment of 4x22mm bare metal stent. Final angiographic views revealed good stent position and expansion with ALBA III flow. After finishing with this procedure we engaged the left main with an EBU 3.5 guide. We wired the circumflex and the OM2 vessel with two run-through wires. The OM vessel was treated first with a 2.5x 15mm balloon followed by insertion and deployment of a 3x18mm BMS. Given the complexity of the bifurcation lesion we also dilated the circumflex segment of the vessel followed by insertion and deployment of 3x 15mm bare metal stent. This was follow by kissing balloon of the OM and the circumflex artery simultaneously with two noncompliant 3 x 12mm balloons. Final angiographic views revealed good stent apposition and expansion with ALBA III flow. The patient tolerated the procedure well without complications. Estimated blood loss less than 70 cc. The right groin access site was closed with a Perclose device. RESULTS LEFT VENTRICLE The left ventricular pressure was 144/18 with an LVEDP of 24. The aortic pressure was 163/97 with a mean of 125. Left ventriculogram revealed low hypokinesis with an estimated ejection fraction of about 45%. There was no gradient upon pullback from the left ventricle to aorta. ANGIOGRAPHY 1. Right coronary artery is a chronic total occlusion, 100% occluded on its proximal segment. It has ALBA II flow and it is filling by collaterals. this right coronary artery is a dominant vessel. 2. The left main is patent with nonobstructive coronary artery disease. 3. The LAD is diffusely diseased throughout. It has a focal 99% lesion proximally and is completely occluded distally. 4. For the circumflex is diffusely diseased. OM2 has a significant 99% lesion. The AV groove of the circumflex is getting collaterals to the right coronary artery and has ostial 80% lesion. OM1 is patent. 6. The ramus is a small vessel diffusely diseased and is patent. Graft angiography: 1. HERNANDEZ to the LAD is patent. 2. SVG to diagonal that has an 80% long lesion proximally. This graft is tortuous. 3. SVG going to the circumflex is very small, ecteric and diffusely diseased CONCLUSION 1. Successful PCI to SVG to diagonal. 2. Successful PCI to OM2. 3. Successful PCI to the circumflex artery. 4 Mild LV systolic dysfunction with an estimated ejection fraction of 45% as well as elevated LVEDP. RECOMMENDATIONS Continue aggressive medical management for secondary prevention of coronary artery disease with BB, statin, ACEi and long acting nitrates. The patient was started on aspirin and Plavix. Regarding post cath procedure he will be going to the telemetry floor for hours of rest post procedure. After bed rest encourage ambulation, cardiac diet and will give IV hydration given extensity of the procedure. Paulie Penn MD [employer] WHEEL REPA[employer]ER/EO /5:36 PM /9:50 PM [facility]
[2016-08-19] VITALS (10 sets, daily range): BP systolic 143–160; BP diastolic 87–93; PULSE 72–89; RESP 20; TEMP 97.8–98.9; O2SAT 93–94
[2016-08-19] MEDS: NITROGLYCERIN 2% OINT 1 GM PACKET TOPICAL SCH ×2 (00:43→06:12)
[2016-08-19] MEDS: HEPARIN SODIUM - SQ 10,000 UNITS/ML VIAL SQ SCH ×2 (00:44→08:00)
[2016-08-19] MEDS: ACETAMINOPHEN 500 MG CPLT PO PRN ×2 (00:57→08:23)
[2016-08-19 01:55] LABS: HEMATOCRIT 39.1 % (39.0-51.0); MEAN CELL VOLUME 87.5 FL (80.0-100.0); MEAN CORPUSCULAR HEMOGLOBIN 29.9 PG (27.0-34.0); MEAN CORPUSCULAR HGB CONC 34.1 % (32.0-36.0); PLATELET COUNT 225 TH/MM3 (150-450); RED BLOOD COUNT 4.47 MIL/MM3 (4.50-5.90); RED CELL DISTRIBUTION WIDTH 14.2 % (11.6-17.2); REVIEW FLAG FINAL; WHITE BLOOD COUNT 11.7 TH/MM3 (4.0-11.0)
[2016-08-19 02:09] LABS: BICARBONATE 31.5 MEQ/L (21.0-32.0); POTASSIUM 4.1 MEQ/L (3.5-5.1)
[2016-08-19] MEDS: INSULIN ASPART SUPPLEMENTAL SCALE SQ SCH (06:17)
[2016-08-19] MEDS ORDERED: ISOSORBIDE MONONITRATE 30 MG TAB PO SCH (07:00)
--- NOTE | 2016-08-19 08:00 | PD.CARD.PN ---
Subjective Subjective Remarks no overnight events chest pain free ambulating without difficulty Objective Medications Current Medications Medications (Trade) Dose Ordered Sig/Justine Route Start Time Stop Time Status Last Admin (NS Flush) 2 ml UNSCH PRN IVF 08/17/16 11:45 (NS Flush) 2 ml BID IV FLUSH 08/17/16 21:00 08/18/16 10:24 (Tylenol) 500 mg Q4H PRN PO 08/17/16 14:15 08/19/16 00:57 (Zofran Inj) 4 mg Q6H PRN IV 08/17/16 14:15 (Nitrostat Sl) 0.4 mg Q5M PRN SL 08/17/16 14:15 (Nitroglycerin 2% Oint) 1 inch Q6HR TOPICAL 08/17/16 17:00 08/19/16 06:12 (D50w (Vial) Inj) 25 ml UNSCH PRN IV PUSH 08/17/16 15:00 (Glucagon Inj) 1 mg UNSCH PRN OTHER 08/17/16 15:00 (Mag-Al Plus Susp Liq) 30 ml Q6H PRN PO 08/17/16 15:15 (Catapres) 0.2 mg Q6H PRN PO 08/17/16 15:15 08/18/16 18:16 (Protonix) 40 mg DAILY PO 08/17/16 15:15 08/18/16 10:23 (Heparin Inj) 5,000 units Q8H SQ 08/18/16 16:00 08/19/16 00:44 (Aspirin Chew) 81 mg DAILY PO 08/19/16 09:00 (Plavix) 75 mg DAILY PO 08/19/16 09:00 (Prinivil) 40 mg DAILY PO 08/19/16 09:00 (Lopressor) 50 mg DAILY PO 08/19/16 09:00 (Imdur) 30 mg DAILY@07 PO 08/19/16 07:00 08/19/16 06:18 Vital Signs / I&O Vital Signs Date Time Temp Pulse Resp B/P Pulse Ox O2 Delivery O2 Flow Rate FiO2 08/19/16 06:00 89 08/19/16 05:00 76 08/19/16 04:00 76 08/19/16 04:00 98.8 73 20 144/88 94 08/19/16 03:00 74 20 143/88 08/19/16 03:00 74 08/19/16 02:00 82 20 143/88 08/19/16 02:00 82 08/19/16 01:55 20 08/19/16 01:00 80 20 08/19/16 01:00 80 08/19/16 00:00 81 08/19/16 00:00 97.8 79 20 153/87 93 08/18/16 23:00 89 08/18/16 19:00 74 08/18/16 19:00 98.1 70 18 160/79 89 08/18/16 18:00 77 158/107 08/18/16 17:39 73 185/117 08/18/16 14:00 72 08/18/16 13:00 66 08/18/16 12:00 99.3 80 18 152/82 91 08/18/16 12:00 84 08/18/16 11:00 77 08/18/16 10:00 78 08/18/16 09:00 72 08/18/16 08:00 68 08/18/16 08:00 99.5 71 18 157/97 93 I/O 08/18/16 08/18/16 08/18/16 08/19/16 08/19/16 08/19/16 07:00 15:00 23:00 07:00 15:00 23:00 Intake Total 240 ml 440 ml 480 ml Output Total 900 ml 1300 ml 1850 ml Balance -660 ml -860 ml -1370 ml Intake Oral 240 ml 240 ml 480 ml IV Total 0 ml 200 ml 0 ml Output Urine Total 900 ml 1300 ml 1850 ml # Bowel Movements 0 Physical Exam GENERAL: Well-nourished, well-developed patient. SKIN: Warm and dry. HEAD: Normocephalic. EYES: No scleral icterus. No injection or drainage. NECK: Supple, trachea midline. No JVD or lymphadenopathy. CARDIOVASCULAR: Regular rate and rhythm without murmurs, gallops, or rubs. RESPIRATORY: Breath sounds equal bilaterally. No accessory muscle use. GASTROINTESTINAL: Abdomen soft, non-tender, nondistended. EXTREMITIES: No cyanosis, or edema. Pulses throughout NEUROLOGICAL: Awake, alert, and oriented x 3. Non-focal. Laboratory Laboratory Tests Test 08/18/16 08/19/16 11:41 01:40 Troponin I 9.25 NG/ML 7.41 NG/ML White Blood Count 11.7 TH/MM3 Red Blood Count 4.47 MIL/MM3 Hemoglobin 13.4 GM/DL Hematocrit 39.1 % Mean Corpuscular Volume 87.5 FL Mean Corpuscular Hemoglobin 29.9 PG Mean Corpuscular Hemoglobin 34.1 % Concent Red Cell Distribution Width 14.2 % Platelet Count 225 TH/MM3 Mean Platelet Volume 8.5 FL Sodium Level 136 MEQ/L Potassium Level 4.1 MEQ/L Chloride Level 100 MEQ/L Carbon Dioxide Level 31.5 MEQ/L Anion Gap 5 MEQ/L Blood Urea Nitrogen 10 MG/DL Creatinine 0.97 MG/DL Estimat Glomerular Filtration 83 ML/MIN Rate Random Glucose 172 MG/DL Calcium Level 8.8 MG/DL Imaging Last Impressions Chest X-Ray 08/17/16 1142 Signed Impressions: Service Date/Time: Wednesday, August 17, 2016 11:48 - CONCLUSION: No acute disease. Luis Eduardo Greco MD Assessment and Plan Problem List: (1) NSTEMI (non-ST elevated myocardial infarction) Assessment and Plan: S/P High risk PCI/BMS to LCX, OM and SVG- Diagonal ECHO EF 50% Chest pain free Ambulating without difficulty Cont DAPT with ASA and Plavix Cont BB, ACEi, Statin and Imdur Stable from CV standpoint to be D/C home today (2) Coronary artery disease (3) Hyperlipidemia (4) Chest pain (5) Diabetes mellitus (6) Tobacco abuse (7) Hypertension (8) Noncompliance with medication regimen (9) CAD (coronary artery disease) Paulie Penn MD Aug 19, 2016 08:00
[2016-08-19] MEDS: SODIUM CHLORIDE 0.9% FLUSH 10 ML FLUSH IV FLUSH SCH (08:24)
[2016-08-19] MEDS: PANTOPRAZOLE SOD 40 MG DELAYED RELEASE TAB PO SCH (08:25)
[2016-08-19] MEDS ORDERED: ISOS30TA3 PO (08:46)
[2016-08-19] MEDS ORDERED: METO25TA3 PO (08:46)
[2016-08-19] MEDS ORDERED: LISI-515 PO (08:46)
[2016-08-19] MEDS ORDERED: METF500T PO (08:46)
[2016-08-19] MEDS ORDERED: ATOR40TA16 PO (08:46)
[2016-08-19] MEDS ORDERED: Aspirin Chew PO (08:46)
[2016-08-19] MEDS ORDERED: PLAV75TA29 PO (08:46)
--- NOTE | 2016-08-19 08:47 | HHI.DCPOC ---
Discharge Care Plan Diagnosis: (1) NSTEMI (non-ST elevated myocardial infarction) (2) Coronary artery disease (3) Hypertension (4) Tobacco abuse (5) CAD (coronary artery disease) (6) Hyperlipidemia Goals to Promote Your Health * To prevent worsening of your condition and complications * To maintain your health at the optimal level Directions to Meet Your Goals Take your medications as prescribed Follow your dietary instruction Follow activity as directed Keep your appointments as scheduled Take your immunizations and boosters as scheduled If your symptoms worsen call your PCP, if no PCP go to Urgent Care Center or Emergency Room Smoking is Dangerous to Your Health. Avoid second hand smoke Call the 24-hour hour crisis hotline for domestic abuse at Thuy Garibay MD Aug 19, 2016 08:47
--- NOTE | 2016-08-19 08:48 | HHI.DS ---
Discharge Summary Admission Date Aug 18, 2016 at 13:32 Discharge Date: Aug 19, 2016 Admitting Diagnosis Chest pain, medication non-compliance, htn, dm, hyperlipidemia (1) NSTEMI (non-ST elevated myocardial infarction) ICD Code: I21.4 (2) Hypertension ICD Code: I10 (3) Diabetes mellitus ICD Code: E11.9 (4) Noncompliance with medication regimen ICD Code: Z91.14 (5) Tobacco abuse ICD Code: Z72.0 (6) CAD (coronary artery disease) ICD Code: I25.10 Procedures Heart catheterization with stent placement Brief History - From Admission 50-year-old male with a medical history significant for coronary artery disease status post triple bypass at age 35, hypertension, diabetes, hyperlipidemia and lifelong smoker presented to the emergency room with complaint of chest tightness. The patient is noncompliant and has not been taking any medications for the past 3 years. Initially he attributed that to lack of insurance but says now he has insurance but did not seek to follow-up. He was initially admitted to the chest pain center but his second set of troponin came back elevated. CBC/BMP: 08/19/16 0140 08/19/16 0140 Significant Findings Laboratory Tests Test 08/17/16 08/17/16 08/17/16 08/18/16 12:00 15:15 18:35 00:16 White Blood Count 11.8 TH/MM3 (4.0-11.0) Neutrophils (%) (Auto) 77.5 % (16.0-70.0) Neutrophils # (Auto) 9.2 TH/MM3 (1.8-7.7) Estimat Glomerular Filtration 84 ML/MIN (>89) Rate Random Glucose 173 MG/DL (74-106) Hemoglobin A1c 8.3 % (4.3-6.0) Total Creatine Kinase 494 U/L 407 U/L 432 U/L (39-308) (39-308) (39-308) Creatine Kinase MB 5.2 NG/ML 6.5 NG/ML 16.6 NG/ML (0.5-3.6) (0.5-3.6) (0.5-3.6) Troponin I LESS THAN 0.02 0.20 NG/ML 1.03 NG/ML 2.77 NG/ML NG/ML (0.02-0.05) (0.02-0.05) (0.02-0.05) (0.02-0.05) Test 08/18/16 08/19/16 11:41 01:40 Troponin I 9.25 NG/ML 7.41 NG/ML (0.02-0.05) (0.02-0.05) White Blood Count 11.7 TH/MM3 (4.0-11.0) Red Blood Count 4.47 MIL/MM3 (4.50-5.90) Estimat Glomerular Filtration 83 ML/MIN (>89) Rate Random Glucose 172 MG/DL (74-106) Imaging Last Impressions Chest X-Ray 08/17/16 1142 Signed Impressions: Service Date/Time: Wednesday, August 17, 2016 11:48 - CONCLUSION: No acute disease. Luis Eduardo Greco MD PE at Discharge GENERAL: This is a well-nourished, well-developed patient, in no apparent distress. CARDIOVASCULAR: Normal rate and regular rhythm without murmurs, gallops, or rubs. RESPIRATORY: Good respiratory efforts. Breath sounds equal and clear to auscultation bilaterally. GASTROINTESTINAL: Abdomen soft, non-tender, non-distended. Normal active bowel sounds MUSCULOSKELETAL: Extremities without cyanosis, or edema. NEURO: Alert & Oriented x4 to person, place, time, situation. Moves all ext x4 PSYCH: Appropriate mood and affect. Pt update on day of discharge Patient reports is feeling well. No more chest pain. No shortness of breath. He ambulated without any problems. Ready to go home. I had an extensive discussion with the patient and his regarding his hospitalization and the need for appropriate follow-up and compliance with medications. Hospital Course 50-year-old male with known history of coronary artery disease status post triple-vessel CABG in 2001. Patient has not been on any medications for the past 3 years. He presented with chest pain. His cardiac enzymes trending upward. Evaluation and treatment course detailed below: NSTEMI: H/O CABG. No meds for the past three years. Patient was followed by cardiology. He underwent heart catheterization with bare-metal stent to LCx, OM and SVG diagonal. He is discharged on aspirin, Plavix, metoprolol, lisinopril, statin and Imdur. I extensively counseled the patient regarding the need to stay on his medications and follow-up with cardiology and his primary care physician. HTN: No medications for the past three years - Patient restarted on metoprolol and lisinopril. He was given a prescription to continue this medications outpatient. He is strongly advised to follow-up with PCP. Diabetes: Untreated and Uncontrolled. Hemoglobin A1c of 8.3 - Patient was treated with Low-dose sliding scale insulin with Accu-Cheks. -He is discharged on metformin. He does need outpatient follow-up. Tobacco abuse: Patient counseled on the detrimental effects of smoking on his health and the need to quit. The patient was given a list of primary care physician who takes his insurance. He is strongly advised to follow-up with a primary care physician and cardiology. Extensive counseling and coordination of care for discharge for > 30 minutes. Pt Condition on Discharge: Good Discharge Disposition: Discharge Home Discharge Time: > 30 minutes Discharge Instructions DIET: Follow Instructions for: Heart Healthy Diet, Diabetic Diet Activities you can perform: Regular-No Restrictions Follow up Referrals: Cardiology @ [facility] PCP Follow-up - 2 Weeks New Medications: Metformin (Metformin) 500 Mg Tab 500 MG PO BIDPC With meals Blood Sugar Management #60 Ref 0 TAB Atorvastatin (Atorvastatin) 40 Mg Tab 40 MG PO DAILY #30 Ref 1 TAB Clopidogrel (Plavix) 75 Mg Tab 75 MG PO DAILY #30 Ref 1 TAB Isosorbide Mononitrate ER (Isosorbide Mononitrate ER) 30 Mg [place] 30 MG PO DAILY@07 #1 TAB Lisinopril (Lisinopril) 20 Mg Tab 40 MG PO DAILY #60 Ref 1 TAB Metoprolol Tartrate (Metoprolol Tartrate) 25 Mg Tab 50 MG PO DAILY #30 Ref 1 TAB ([Aspirin Chew]) 81 MG CHEW 81 MG PO DAILY #30 Ref 1 TAB.Thuy Ayala MD Aug 19, 2016 08:48
[2016-08-19] MEDS ORDERED: METOPROLOL TARTRATE 25 MG TAB PO SCH (09:00)
[2016-08-19] MEDS ORDERED: ATORVASTATIN 40 MG TAB PO SCH (09:00)
[2016-08-19] MEDS ORDERED: LISINOPRIL 20 MG TAB PO SCH (09:00)
[2016-08-19] MEDS ORDERED: CLOPIDOGREL 75 MG TAB PO SCH (09:00)
[2016-08-19] MEDS ORDERED: ASPIRIN 81 MG CHEW TAB PO SCH (09:00)
--- NOTE | 2016-08-19 14:00 | EKG ---
Date Performed: 08/17/2016 Time Performed: 18:33:48 PTAGE: 50 years EKG: SINUS BRADYCARDIA MODERATE INTRAVENTRICULAR CONDUCTION DELAY NONSPECIFIC T-WAVE ABNORMALITY ABNORMAL ECG PREVIOUS TRACING : 08/17/2016 15.16 DOCTOR: Kishan Griffin Interpretating Date/Time 08/19/2016 13:58:46
--- NOTE | 2016-08-19 14:04 | EKG ---
Date Performed: 08/17/2016 Time Performed: 15:16:41 PTAGE: 50 years EKG: SINUS BRADYCARDIA MODERATE INTRAVENTRICULAR CONDUCTION DELAY MODERATE ST DEPRESSION and T w ave inversion leads 1 and AVL ABNORMAL ECG NO PREVIOUS TRACING DOCTOR: Kishan Griffin Interpretating Date/Time 08/19/2016 14:03:14
--- NOTE | 2016-08-19 14:09 | EKG ---
Date Performed: 08/17/2016 Time Performed: 11:29:19 PTAGE: 50 years EKG: Sinus rhythm MODERATE INTRAVENTRICULAR CONDUCTION DELAY MODERATE ST DEPRESSION and T wave inversion in leads 1 an d AVL. ABNORMAL ECG NO PREVIOUS TRACING DOCTOR: Kishan Griffin Interpretating Date/Time 08/19/2016 14:07:42
== END 2016-08-19 10:01 | disposition home or self-care (01) | DRG 247 ==
LOC: NEPE 11:20 → NEDA 13:05 → NEPHCDU 15:34 → HCIS 21:46 → OBSVTOIN 08-18 13:32
PROVIDERS: ADMIT Family Medicine; ATTEND Family Medicine
PROC: 4A023N7 Measurement of Cardiac Sampling and Pressure, Left Heart, Percutaneous Approach (ICD-10-PCS; principal; 2016-08-18)
PROC: 02713EZ Dilation of Coronary Artery, Two Arteries with Two Intraluminal Devices, Percutaneous Approach (ICD-10-PCS; 2016-08-18)
PROC: 027034Z Dilation of Coronary Artery, One Artery with Drug-eluting Intraluminal Device, Percutaneous Approach (ICD-10-PCS; 2016-08-18)
PROC: B2131ZZ Fluoroscopy of Multiple Coronary Artery Bypass Grafts using Low Osmolar Contrast (ICD-10-PCS; 2016-08-18)
PROC: B2111ZZ Fluoroscopy of Multiple Coronary Arteries using Low Osmolar Contrast (ICD-10-PCS; 2016-08-18)
PROC: B2151ZZ Fluoroscopy of Left Heart using Low Osmolar Contrast (ICD-10-PCS; 2016-08-18)
PROC: B2181ZZ Fluoroscopy of Left Internal Mammary Bypass Graft using Low Osmolar Contrast (ICD-10-PCS; 2016-08-18)
PROC: B41F1ZZ Fluoroscopy of Right Lower Extremity Arteries using Low Osmolar Contrast (ICD-10-PCS; 2016-08-18)
DX: I21.4 Non-ST elevation (NSTEMI) myocardial infarction (principal); I25.810 Atherosclerosis of coronary artery bypass graft(s) without angina pectoris; I10 Essential (primary) hypertension; E11.9 Type 2 diabetes mellitus without complications; I25.10 Atherosclerotic heart disease of native coronary artery without angina pectoris; J44.9 Chronic obstructive pulmonary disease, unspecified; E78.5 Hyperlipidemia, unspecified; I25.2 Old myocardial infarction; K21.9 Gastro-esophageal reflux disease without esophagitis; F17.210 Nicotine dependence, cigarettes, uncomplicated; Z79.84 Long term (current) use of oral hypoglycemic drugs; Z82.3 Family history of stroke; Z82.49 Family history of ischemic heart disease and other diseases of the circulatory system; Z83.3 Family history of diabetes mellitus; Z91.14 Patient's other noncompliance with medication regimen; Z91.19 Patient's noncompliance with other medical treatment and regimen
CPT/HCPCS: 71010; 80048; 82550; 82552; 82948; 83036; 83735; 84484; 85002; 85025; 85027; 85610; 85730; 92928; 92937; 93005; 93306; 93458; 96374; C1725; C1760; C1769; C1876; C1884; C1887; C1893; G0269; G0378; J1644; J1815; J2250; J2270; J2405; J3010; Q9967

== ENCOUNTER → 2017-09-18 | Outpatient (CLI) | payer OTHER ==
[~2017-09-18] MED LIST changes: -AMOX875T20 PO; -ASPI325T PO; +ATOR40TA16 PO; +Aspirin Chew PO; +ISOS30TA3 PO; -LISI-363 PO; +LISI-515 PO; -LORTA5 PO; -METF1000 PO; +METF500T PO; +METO25TA3 PO; -NIAC500 PO; +PLAV75TA29 PO; -ROSU40 PO; -SYNT25TA PO
--- NOTE | 2017-09-23 12:53 | RSPPFT ---
DATE OF PROCEDURE: 09/18/17 COMMENTS: Spirometry shows FVC of 5.2 at 101% of predicted, FEV1 of 4.1 at 98%, FEV1/FVC ratio is normal. Flow is normal at FEF 25, FEF 50, FEF 75 and FEF 25-75. There is no response after bronchodilator treatment. Lung volumes show residual volume is normal. TLC is normal. Diffusion capacity is normal. Flow volume loop indicates a normal pattern. IMPRESSION: 1. Normal spirometry. 2. No response after bronchodilator treatment. 3. Normal lung volumes. 4. Normal diffusion capacity.
== END ==
LOC: HRSP 10:32
PROVIDERS: ATTEND Specialist
DX: R06.00 Dyspnea, unspecified (principal)
CPT/HCPCS: 36600; 82805; 94060; 94726; 94729